=== PATIENT | female | born 1990 | race Caucasian/White ===

== ENCOUNTER 2020-02-13 16:00 | Observation (INO) ==
[2020-02-13 16:52] LABS: Basophils % 0.1 %; Eosinophils % 0.1 %; Hematocrit 44.2 % (35.3-44.9); Immature Granulocytes % 0.5 % (0-4); Lymphocytes # 5.7 K/mcL (0.6-4.6); Lymphocytes % 37.2 %; Mean Corpuscular HGB Conc 33.9 g/dL (31.6-35.5); Mean Corpuscular Hemoglobin 31.4 pg (28.0-33.3); Mean Corpuscular Volume 92.7 fL (83.0-100.0); Mean Platelet Volume 8.6 fL (9.4-12.4); Monocytes # 1.2 K/mcL (0.0-1.3); Monocytes % 7.8 %; Neutrophils # 8.3 K/mcL (1.6-8.9); Platelet Count 251 K/mcL (140-400); Red Blood Count 4.77 M/mcL (3.82-4.97); Red Cell Distribution Width 12.9 % (11.5-14.5); Segmented Neutrophils % 54.3 %; White Blood Count 15.2 K/mcL (4.3-11.1)
[2020-02-13 17:03] LABS: Prothrombin Time 11.7 Seconds (9.4-12.1)
[2020-02-13 17:05] LABS: Activated Partial Thrombo Time 28.5 Seconds (26.0-36.0)
[2020-02-13 17:06] LABS: D-Dimer < 215 ng/mLFEU (0-500)
[2020-02-13 17:16] LABS: BUN/Creatinine Ratio 24 (6-26); Blood Urea Nitrogen 18 mg/dL (6-20); Calcium 9.6 mg/dL (8.6-10.3); Carbon Dioxide 27 mEq/L (23-29); Chloride 106 mEq/L (98-107); Glucose 99 mg/dL (70-105); Osmolality,Calculated 292 (280-300); Potassium 3.5 mEq/L (3.5-5.1); Sodium 140 mEq/L (136-145); Troponin I < 0.03 ng/mL (< 0.04); eGFR For African Americans > 60 (> 60); eGFR For Non-African Americans > 60 (> 60)
[2020-02-13] MEDS ORDERED: Furosemide 20 MG/2 ML VIAL IVP ONE (17:46)
[2020-02-13 18:40] LABS: Alanine Aminotransferase 33 Units/L (7-52); Albumin 4.7 g/dL (3.5-5.7); Albumin/Globulin Ratio 1.5 (1.1-2.2); Alkaline Phosphatase 73 Units/L (34-104); Aspartate Amino Transferase 13 Units/L (13-39); Bilirubin,Indirect 0.2 mg/dL (0.0-1.0); Bilirubin,Total 0.2 mg/dL (0.3-1.0); Globulin 3.2 g/dL (2.4-3.5); Total Protein 7.9 g/dL (6.4-8.9)
[2020-02-13] MEDS ORDERED: Ondansetron ODT 4 MG TAB.RAPDIS SL PRN (18:45)
[2020-02-13] MEDS ORDERED: Naloxone 0.4 MG/ML INJ IVP PRN (18:45)
[2020-02-13] MEDS ORDERED: Perflutren Lipid Microsphere 1.3 ML in 0.9 % Sodium Chloride 8.7 ML IVP PRN (18:53)
[2020-02-13] MEDS ORDERED: Ipratropium/Albuterol Neb 3 ML IH PRN (18:54)
[2020-02-13] MEDS ORDERED: Aspirin 325 MG TABLET PO ONE (19:11)
[2020-02-13 20:42] LABS: Adenovirus Not Detected (Not Detect); Bordetella Pertussis Not Detected (Not Detect); Chlamydophila pneumoniae Not Detected (Not Detect); Coronavirus 229E Not Detected (Not Detect); Coronavirus HKU1 Not Detected (Not Detect); Coronavirus NL63 Not Detected (Not Detect); Coronavirus OC43 Not Detected (Not Detect); Human Metapneumovirus Not Detected (Not Detect); Human Rhinovirus/Enterovirus Not Detected (Not Detect); Influenza A Subtype 2009 H1 Not Detected (Not Detect); Influenza B Not Detected (Not Detect); Mycoplasma pneumoniae Not Detected (Not Detect); Parainfluenza Virus 1 Not Detected (Not Detect); Parainfluenza Virus 2 Not Detected (Not Detect); Parainfluenza Virus 3 Not Detected (Not Detect); Parainfluenza Virus 4 Not Detected (Not Detect); Respiratory Syncytial Virus Not Detected (Not Detect); SARS-CoV-2 Not Detected (Not Detect)
[2020-02-13] MEDS ORDERED: Acetaminophen 325 MG TABLET PO ONE (22:49)
[2020-02-14 01:21] LABS: Hematocrit 39.7 % (35.3-44.9); Hemoglobin 13.6 g/dL (11.5-15.4); Mean Corpuscular HGB Conc 34.3 g/dL (31.6-35.5); Mean Corpuscular Hemoglobin 31.3 pg (28.0-33.3); Mean Corpuscular Volume 91.5 fL (83.0-100.0); Mean Platelet Volume 8.9 fL (9.4-12.4); Platelet Count 229 K/mcL (140-400); Red Blood Count 4.34 M/mcL (3.82-4.97); White Blood Count 13.1 K/mcL (4.3-11.1)
[2020-02-14 01:40] LABS: BUN/Creatinine Ratio 26 (6-26); Blood Urea Nitrogen 22 mg/dL (6-20); Calcium 8.6 mg/dL (8.6-10.3); Carbon Dioxide 23 mEq/L (23-29); Chloride 106 mEq/L (98-107); Glucose 148 mg/dL (70-105); Osmolality,Calculated 292 (280-300); Potassium 3.6 mEq/L (3.5-5.1); Sodium 138 mEq/L (136-145); eGFR For African Americans > 60 (> 60); eGFR For Non-African Americans > 60 (> 60)
[2020-02-14 05:51] LABS: Troponin I < 0.03 ng/mL (< 0.04)
[2020-02-14 08:37] LABS: Thyroid Stimulating Hormone 2.694 mcIU/mL (0.340-5.600)
[2020-02-14] MEDS ORDERED: Acetaminophen 325 MG TABLET PO ONE (09:48)
[2020-02-14 15:04] VITALS: BP 109/75
[2020-02-14] MEDS ORDERED: Famotidine 20 MG TABLET PO SCH (21:00)
== END 2020-02-14 18:35 | disposition home or self-care (01) ==
LOC: EMEROOARM 16:00 → 3BNU 16:00 → SUATTDRO 18:29 → 3BNU 20:50
PROVIDERS: ADMIT Family Medicine; ATTEND Family Medicine